=== PATIENT | male | born 1950 | race Caucasian/White ===

== ENCOUNTER → 2018-10-26 | Outpatient (CLI) | payer MEDICARE ==
[~2018-10-26] MED LIST: CONTRAST GIVEN. MC PRN; IOHEXOL 240 MG/ML 50ML VIAL. PO ONE
--- NOTE | 2018-10-26 16:30 | RAD ---
EXAM: CT Abdomen and Pelvis without IV contrast CLINICAL HISTORY: Abdominal pain. COMPARISON: none TECHNIQUE: Helical CT of the abdomen and pelvis without intravenous contrast. Oral contrast was administered. Axial, coronal and sagittal reformatted images were generated. PQRS compliance statement - One or more of the following individualized dose reduction techniques were utilized for this study: 1. Automated exposure control 2. Adjustment of the mA and/or kV according to patient size 3. Use of iterative reconstruction technique FINDINGS: Lack of intravenous contrast limits evaluation of solid organs, vasculature, and lymph nodes. Lower chest: Lung bases are clear Abdomen and Pelvis: No focal liver lesion. Accounting for postcholecystectomy change, no biliary ductal dilatation. Calcified granuloma is seen within the spleen. Adrenal glands are normal. Pancreas is unremarkable. Right lower pole and interpolar renal cystic lesions are seen. No renal tract calculus. No hydronephrosis or hydroureter. Diffuse bladder wall thickening may be seen with cystitis or be reactive. Evaluation the pelvis limited given left hip arthroplasty. There is fat infiltration about the sigmoid colon in the region of numerous diverticula consistent with acute diverticulitis. Within the limitations of streak artifact, no loculated fluid collection or free intraperitoneal gas is seen. Small fat-containing periumbilical hernia. No abdominal or pelvic ascites. Atherosclerotic calcifications of aorta are seen. Bones: Left hip arthroplasty. Degenerative changes symphysis pubis and right hip. Lumbar spine degenerative changes are also seen. IMPRESSION: 1. Acute diverticulitis without associated loculated fluid collection. 2. Diffuse bladder wall thickening may be seen with cystitis. Electronically signed by: Mack Medina MD (10/26/2018 4:27 PM) [facility]
== END | disposition home or self-care (01) ==
LOC: CT 13:48
PROVIDERS: ATTEND Family Medicine
DX: K57.32 Diverticulitis of large intestine without perforation or abscess without bleeding (principal); K42.9 Umbilical hernia without obstruction or gangrene; N28.89 Other specified disorders of kidney and ureter; D73.89 Other diseases of spleen; I70.0 Atherosclerosis of aorta
CPT/HCPCS: 74176

== ENCOUNTER → 2019-11-01 | Outpatient (CLI) | payer MEDICARE ==
--- NOTE | 2019-11-01 14:12 | KCIC ---
LUMBAR SPINE WO CONTRAST Date: 11/01/2019 12:30 PM Indication: Reason: SPINAL STENOSIS. Microdiscectomy 2015. Chronic LBP about 3 yrs. Bilateral gluteal pain. Yrs of lifting. Comparison: CT abdomen pelvis 02/26/2019. Technique: Multi-planar multi-weighted magnetic resonance imaging of the lumbar spine was performed without intravenous contrast using the standard lumbar spine protocol. FINDINGS: Straightening of the lumbar lordosis. Trace anterolisthesis at L3-4. No acute fracture. Moderate to severe multilevel degenerative disc desiccation and disc height loss. Degenerative endplate edema at L4-5 and L5-S1. Trace degenerative endplate edema at L2-3. L1 hemangioma. The conus terminates at a normal level. No abnormal signal is seen within the visualized distal spinal cord. No clumping of intrathecal nerve roots. 2 cm right renal cyst. T12-L1: No disc bulge. No facet arthropathy. No significant spinal stenosis or neural foraminal narrowing. L1-L2: Disc bulge. Mild facet arthropathy. No spinal stenosis. Mild bilateral neural foraminal narrowing. L2-L3: Disc bulge. Mild to moderate facet arthropathy. Mild spinal stenosis. Mild bilateral neural foraminal narrowing. L3-L4: Disc bulge with left far lateral protrusion. Moderate right and severe left facet arthropathy. Ligamentum flavum thickening. Moderate spinal stenosis and left lateral recess narrowing. Mild right and moderate left neural foraminal narrowing. L4-L5: Disc bulge. Mild to moderate facet arthropathy. Mild spinal stenosis. Moderate lateral recess narrowing. Mild to moderate bilateral neural foraminal narrowing. L5-S1: Disc bulge with bilateral far lateral protrusions. Mild facet arthropathy. Mild spinal stenosis and lateral recess narrowing. Moderate to severe bilateral neural foraminal narrowing. IMPRESSION: Moderate to severe lumbar spondylosis, detailed level by level above. Electronically signed by: Miguel Pedersen MD (11/01/2019 2:09 PM) [id number]
== END | disposition home or self-care (01) ==
LOC: KCIC MRI 12:21
PROVIDERS: ATTEND Family Medicine
DX: M47.817 Spondylosis without myelopathy or radiculopathy, lumbosacral region (principal); M48.061 Spinal stenosis, lumbar region without neurogenic claudication; M40.46 Postural lordosis, lumbar region
CPT/HCPCS: 72148